=== PATIENT | male | born 1980 | race Caucasian/White ===

== ENCOUNTER 2017-03-05 20:17 | Observation (INO) | payer BC, OTHER ==
[2017-03-05] MEDS ORDERED: Ketorolac 30 MG/ML SDV IVPUSH ONE (20:21)
[2017-03-05] MEDS ORDERED: Alum Hydrox/Mag Hydrox/Simeth 15 ML, Metoclopramide 5 MG, Lidocaine 2% 5 ML PO ONE ×3 (20:21)
[2017-03-05] MEDS ORDERED: Famotidine 20 MG/2 ML SDV IVPUSH ONE (20:21)
[2017-03-05] MEDS ORDERED: Aspirin 81 MG Tab.Chew PO ONE (20:21)
[2017-03-05] MEDS ORDERED: Nitroglycerin 0.4 MG Tab.SL SL PRN (20:26)
[2017-03-05] MEDS ORDERED: Nitroglycerin 2% Oint 1 GM UD Packet TOP ONE (20:26)
--- NOTE | 2017-03-05 20:30 | EDM.PDOC ---
ED HISTORY OF PRESENT ILLNESS - General Chief Complaint: Chest Pain Stated Complaint: CHEST PAIN /SHORT OF BREATH Time Seen by Provider: 03/05/17 20:26 Source of Information: Reports: Patient History Limitations: Reports: No limitations - History of Present Illness INITIAL COMMENTS - FREE TEXT/NARRATIVE: History of present illness: [36-year-old male comes in complaining of stabbing chest pain approximately 2 hours ago. He is a obese male with a history of an RCA stent 2 years ago this month. Patient does indicate he has had anginal type pain off and on over the last 2 years without cardiac implications and so that is why he waited feeling that this would be like the other times and be self limiting and of no consequence when the pain would not stop he chose to come in an be evaluated.] Review of systems: As per history of present illness and below otherwise all systems reviewed and negative. Past medical history: As per history of present illness and as reviewed below otherwise noncontributory. Surgical history: As per history of present illness and as reviewed below otherwise noncontributory. Social history: No reported history of drug or alcohol abuse. Family history: As per history of present illness and as reviewed below otherwise noncontributory. Physical exam: HEENT: Atraumatic, normocephalic, pupils reactive, negative for conjunctival pallor or scleral icterus, mucous membranes moist, throat clear, neck supple, nontender, trachea midline. Lungs: Clear to auscultation, breath sounds equal bilaterally, chest nontender. Heart: S1S2, regular, negative for clicks, rubs, or JVD. Abdomen: Soft, nondistended, nontender. Negative for masses or hepatosplenomegaly. Negative for costovertebral tenderness. Pelvis: Stable nontender. Genitourinary: Deferred. Rectal: Deferred. Extremities: Atraumatic, negative for cords or calf pain. Neurovascular unremarkable. Neuro: Awake, alert, oriented. Cranial nerves II through XII unremarkable. Cerebellum unremarkable. Motor and sensory unremarkable throughout. Exam nonfocal. Initial troponin is negative Chest pain is 0/10 Diagnostics: [ cardiac work up] Therapeutics: IV lock, 1 inch of nitro paste and nitroglycerin sublingual when necessary ] Impression: [Chest pain] Plan: Admit to observation] Definitive disposition and diagnosis as appropriate pending reevaluation and review of above. - Related Data Allergies/ADRs: Allergies Allergy/AdvReac Type Severity Reaction Status Date / Time No Known Allergies Allergy Verified 03/05/17 20:26 Home Meds: Home Meds Escitalopram [Lexapro] 20 mg PO DAILY 07/06/14 [History] Esomeprazole [NexIUM] 20 mg PO DAILY 07/06/14 [History] Ranitidine HCl [Ranitidine] 150 mg PO ASDIRECTED PRN 07/06/14 [History] Budesonide/Formoterol [Symbicort 160-4.5 Mcg Inhaler] 2 puff INH DAILY 08/07/14 [History] Cholecalciferol (Vitamin D3) [Vitamin D3] 3 tab PO DAILY 08/07/14 [History] Albuterol [Ventolin HFA] 2 puff INH DAILY PRN 03/05/17 [History] Aspirin [Adult Low Dose Aspirin EC] 81 mg PO DAILY 03/05/17 [History] Bisoprolol [Zebeta] 5 mg PO DAILY 03/05/17 [History] Enalapril [Vasotec] 2.5 mg PO BID 03/05/17 [History] Nitroglycerin [Nitrostat] 0.4 mg SL Q5M PRN 03/05/17 [History] atorvaSTATin [Lipitor] 80 mg PO DAILY 03/05/17 [History] Social & Family History - Tobacco Use Smoking Status *Q: Current Every Day Smoker Years of Tobacco use: 12 Second Hand Smoke Exposure: No - Alcohol Use Days Per Week of Alcohol Use: 0 - Recreational Drug Use Recreational Drug Use: No ED ROS GENERAL - Review of Systems Review Of Systems: See Below (See history of present illness) ED EXAM, GENERAL - Physical Exam Exam: See Below (See history of present illness) Course - Vital Signs Last Recorded V/S: Last Vital Signs Temp 36.3 C 03/05/17 20:24 Pulse 91 03/05/17 20:24 Resp 20 03/05/17 20:24 BP 134/71 03/05/17 20:44 Pulse Ox 97 03/05/17 20:24 - Orders/Labs/Meds Orders: Active Orders 24 hr Category Date Time Status Cardiac Monitoring [RC] . DIRECTED Care 03/05/17 20:21 Active EKG Documentation Completion [RC] STAT Care 03/05/17 20:21 Active Chest 2V [CR] Stat Exams 03/05/17 20:21 Taken UA W/MICROSCOPIC [URIN] Stat Lab 03/05/17 20:21 Uncollected Saline Lock Insert [OM.PC] Stat Oth 03/05/17 20:21 Ordered Labs: Laboratory Tests 03/05/17 03/05/17 03/05/17 Range/Units 20:33 20:33 20:33 WBC 10.15 (4.0-11.0) K/uL RBC 4.89 (4.50-5.90) M/uL Hgb 15.5 (13.0-17.0) g/dL Hct 45.8 (38.0-50.0) % MCV 93.7 (80.0-98.0) fL MCH 31.7 (27.0-32.0) pg MCHC 33.8 (31.0-37.0) g/dL RDW Std Deviation 46.2 (28.0-62.0) fl RDW Coeff of Jessica 14 (11.0-15.0) % Plt Count 211 (150-400) K/uL MPV 11.10 (7.40-12.00) fL Neut % (Auto) 56.4 (48.0-80.0) % Lymph % (Auto) 31.1 (16.0-40.0) % Newton % (Auto) 7.3 (0.0-15.0) % Eos % (Auto) 5.0 (0.0-7.0) % Baso % (Auto) 0.2 (0.0-1.5) % Neut # (Auto) 5.7 (1.4-5.7) K/uL Lymph # (Auto) 3.2 H (0.6-2.4) K/uL Newton # (Auto) 0.7 (0.0-0.8) K/uL Eos # (Auto) 0.5 (0.0-0.7) K/uL Baso # (Auto) 0.0 (0.0-0.1) K/uL Nucleated RBC % 0.0 /100WBC Nucleated RBCs # 0 K/uL INR 1.05 (0.86-1.11) Sodium 140 (136-146) mmol/L Potassium 4.0 (3.5-5.1) mmol/L Chloride 109 (98-110) mmol/L Carbon Dioxide 24 (21-31) mmol/L BUN 10 (6.0-23.0) mg/dL Creatinine 1.0 (0.6-1.5) mg/dL Est Cr Clr Drug Dosing 109.93 mL/min Estimated GFR (MDRD) > 60.0 ml/min Glucose 156 H (60-110) mg/dL Calcium 8.8 (8.8-10.8) mg/dL Total Bilirubin 0.4 (0.1-1.5) mg/dL AST 28 (5-40) IU/L ALT 51 (8-54) IU/L Alkaline Phosphatase 120 (40-150) Troponin I (0.0-0.29) NG/ML Total Protein 6.8 (6.0-8.0) g/dL Albumin 4.1 (3.5-5.0) g/dL Globulin 2.7 (2.0-3.5) g/dL Albumin/Globulin Ratio 1.5 (1.3-2.8) Amylase 29 (10-90) U/L Lipase 22 (7-80) U/L 03/05/17 Range/Units 20:33 WBC (4.0-11.0) K/uL RBC (4.50-5.90) M/uL Hgb (13.0-17.0) g/dL Hct (38.0-50.0) % MCV (80.0-98.0) fL MCH (27.0-32.0) pg MCHC (31.0-37.0) g/dL RDW Std Deviation (28.0-62.0) fl RDW Coeff of Jessica (11.0-15.0) % Plt Count (150-400) K/uL MPV (7.40-12.00) fL Neut % (Auto) (48.0-80.0) % Lymph % (Auto) (16.0-40.0) % Newton % (Auto) (0.0-15.0) % Eos % (Auto) (0.0-7.0) % Baso % (Auto) (0.0-1.5) % Neut # (Auto) (1.4-5.7) K/uL Lymph # (Auto) (0.6-2.4) K/uL Newton # (Auto) (0.0-0.8) K/uL Eos # (Auto) (0.0-0.7) K/uL Baso # (Auto) (0.0-0.1) K/uL Nucleated RBC % /100WBC Nucleated RBCs # K/uL INR (0.86-1.11) Sodium (136-146) mmol/L Potassium (3.5-5.1) mmol/L Chloride (98-110) mmol/L Carbon Dioxide (21-31) mmol/L BUN (6.0-23.0) mg/dL Creatinine (0.6-1.5) mg/dL Est Cr Clr Drug Dosing mL/min Estimated GFR (MDRD) ml/min Glucose (60-110) mg/dL Calcium (8.8-10.8) mg/dL Total Bilirubin (0.1-1.5) mg/dL AST (5-40) IU/L ALT (8-54) IU/L Alkaline Phosphatase (40-150) Troponin I < 0.10 (0.0-0.29) NG/ML Total Protein (6.0-8.0) g/dL Albumin (3.5-5.0) g/dL Globulin (2.0-3.5) g/dL Albumin/Globulin Ratio (1.3-2.8) Amylase (10-90) U/L Lipase (7-80) U/L Meds: Medications Discontinued Medications Generic Name Dose Route Start Last Admin Trade Name Freq PRN Reason Stop Dose Admin Aspirin 324 mg 03/05/17 20:21 03/05/17 20:36 Aspirin PO 03/05/17 20:22 324 mg ONETIME ONE Administration Al Hydroxide/Mg Hydroxide 15 0 ml 03/05/17 20:21 03/05/17 20:37 ml/ Metoclopramide HCl 5 mg/ PO 03/05/17 20:22 15 each Lidocaine HCl 5 ml ONETIME ONE Administration Famotidine 20 mg 03/05/17 20:21 03/05/17 20:41 Pepcid IVPUSH 03/05/17 20:22 20 mg ONETIME ONE Administration Ketorolac Tromethamine 30 mg 03/05/17 20:21 03/05/17 20:38 Toradol IVPUSH 03/05/17 20:22 30 mg ONETIME ONE Administration Nitroglycerin 1 gm 03/05/17 20:26 03/05/17 20:36 Nitro-Bid 2% TOP 03/05/17 20:27 1 gm ONETIME ONE Administration Nitroglycerin 0.4 mg 03/05/17 20:26 03/05/17 20:44 Nitrostat SL 03/05/17 20:37 0.4 mg Q5M PRN Administration Chest Pain Departure - Departure Time of Disposition: 21:36 Disposition: Admitted As Inpatient 64 Clinical Impression: Chest pain Forms: ED Department Discharge - My Orders Last 24 Hours: My Active Orders 03/05/17 20:21 Cardiac Monitoring [RC] . DIRECTED EKG Documentation Completion [RC] STAT Chest 2V [CR] Stat UA W/MICROSCOPIC [URIN] Stat Saline Lock Insert [OM.PC] Stat - Assessment/Plan Last 24 Hours: My Active Orders 03/05/17 20:21 Cardiac Monitoring [RC] . DIRECTED EKG Documentation Completion [RC] STAT Chest 2V [CR] Stat UA W/MICROSCOPIC [URIN] Stat Saline Lock Insert [OM.PC] Stat
[2017-03-05 21:13] LABS: CHLORIDE,CL 109 mmol/L (98-110); SODIUM,NA 140 mmol/L (136-146)
[2017-03-05] MEDS ORDERED: Albuterol 8 GM Inhaler INH PRN (23:25)
[2017-03-05] MEDS ORDERED: Famotidine 20 MG Tab PO PRN (23:25)
[2017-03-05] MEDS ORDERED: Aspirin 81 MG Tab.EC PO SCH (23:30)
[2017-03-05] MEDS ORDERED: atorvaSTATin 40 MG Tab PO SCH (23:30)
[2017-03-06] MEDS: Enalapril 5 MG Tab PO SCH ×2 (00:24→08:49)
[2017-03-06] MEDS ORDERED: Pantoprazole 40 MG Tab.CR PO ONE (01:00)
[2017-03-06] MEDS ORDERED: Enoxaparin 40 MG/0.4 ML Syringe SUBCUT ONE (01:00)
[2017-03-06] MEDS ORDERED: Escitalopram 10 MG Tab PO ONE (01:00)
[2017-03-06] MEDS ORDERED: Cholecalciferol (Vitamin D3) 1,000 Unit Tab PO ONE (01:00)
[2017-03-06] MEDS ORDERED: Ketorolac 30 MG/ML SDV IVPUSH PRN (03:12)
[2017-03-06] MEDS ORDERED: Enoxaparin 40 MG/0.4 ML Syringe SUBCUT SCH (09:00)
[2017-03-06 11:28] VITALS: BP 125/77
--- NOTE | 2017-03-06 13:22 | CR ---
EXAM DATE: 03/05/17 PATIENT'S AGE: 36 Patient: HELLEN JOSEPH Facility: [place], [place] Site . Site : 1980 Study: XRay Chest [id number]/30/2017 9:04:20 PM Ordering Physician: Doctor Acevedo Final Report: Indication: Chest pain. Technique: Two views. Impression: Some limitation from body habitus. Heart size is upper normal. No mediastinal widening. Peripheral pulmonary vascularity is normal. No focal airspace opacity , pneumothorax or effusion. Dictated by Alvarado Dozier MD @ Mar 05 2017 9:08PM (Electronic Signature) Report Signed by Proxy. BLAISE
[2017-03-06] MEDS ORDERED: Cholecalciferol (Vitamin D3) 1,000 Unit Tab PO SCH (21:00)
[2017-03-06] MEDS ORDERED: Pantoprazole 40 MG Tab.CR PO SCH (21:00)
[2017-03-06] MEDS ORDERED: Escitalopram 10 MG Tab PO SCH (23:26)
--- NOTE | 2017-03-09 14:34 | PCM.HP ---
<Dorian Dominique - Last Filed: 03/09/17 14:26> H&P History of Present Illness - General Date of Service: 03/06/17 Admit Problem/Dx: chest pain Source of Information: Patient History Limitations: Reports: No limitations - History of Present Illness Initial Comments - Free Text/Narative: 36-year-old male admitted with stabbing chest pain over the past 2 hours. Patient's does have a cardiac history with right coronary artery stenting done 2 years ago. Patient states that over the past years he has had off-and-on anginal pain. The pain today came at rest and without exertion. It has persisted so the patient presented to the ER. Typically the pain will go away on its own. He denies any shortness of breath, wheezing, cough, nausea, vomiting , abdominal pain diaphoresis, radiation with the onset of chest pain. He denies any orthopnea or peripheral edema. Patient does smoke. ER course: Initial troponin was negative. Nitro paste was applied to the patient. He did receive a one-time dose of aspirin and he also received Pepcid, Toradol and a GI cocktail. When the patient got to [facility] floor he did not have any complaints of chest pain. Chest x-ray was unremarkable. Vital signs were stable and within normal limits. CBC, CMP were unremarkable. Chest Pain Score (Numeric/FACES): 0 - Related Data Allergies/Adverse Reactions: Allergies Allergy/AdvReac Type Severity Reaction Status Date / Time No Known Allergies Allergy Verified 03/05/17 20:26 Home Medications: Home Meds Escitalopram [Lexapro] 20 mg PO BEDTIME 07/06/14 [History] Esomeprazole [NexIUM] 20 mg PO BEDTIME 07/06/14 [History] Ranitidine HCl [Ranitidine] 150 mg PO ASDIRECTED PRN 07/06/14 [History] Budesonide/Formoterol [Symbicort 160-4.5 MCG] 2 puff INH ASDIRECTED PRN [History] Cholecalciferol (Vitamin D3) [Vitamin D3] 3 tab PO BEDTIME 08/07/14 [History] Albuterol [Ventolin HFA] 2 puff INH DAILY PRN 03/05/17 [History] Aspirin [Adult Low Dose Aspirin EC] 81 mg PO BEDTIME 03/05/17 [History] Bisoprolol [Zebeta] 2.5 mg PO BEDTIME 03/05/17 [History] Enalapril [Vasotec] 2.5 mg PO BID 03/05/17 [History] Nitroglycerin [Nitrostat] 0.4 mg SL Q5M PRN 03/05/17 [History] atorvaSTATin [Lipitor] 80 mg PO BEDTIME 03/05/17 [History] Past Medical History Cardiovascular History: Reports: CAD, High cholesterol, Hypertension, SD, Stents Respiratory History: Reports: Asthma Gastrointestinal History: Reports: GERD Genitourinary History: Reports: Other (see below) Other Genitourinary History: Kidney stone Psychiatric History: Reports: Depression - Infectious Disease History Infectious Disease History: Reports: Chicken pox - Past Surgical History Cardiovascular Surgical History: Reports: Coronary artery stent Respiratory Surgical History: Reports: None GI Surgical History: Reports: None Other Male Surgeries/Procedures: kidney stone removal Musculoskeletal Surgical History: Reports: Carpal tunnel Social & Family History - Family History Family Medical History: Noncontributory - Tobacco Use Smoking Status *Q: Current Every Day Smoker Years of Tobacco use: 27 Packs/Tins Daily: 0.5 Second Hand Smoke Exposure: Yes - Caffeine Use Caffeine Use: Reports: Coffee, Soda, Tea - Alcohol Use Days Per Week of Alcohol Use: 0 - Recreational Drug Use Recreational Drug Use: Yes Recreational Drug Type: Reports: Marijuana/Hashish H&P Review of Systems - Review of Systems: Review Of Systems: See Below General: Reports: no symptoms HEENT: Reports: no symptoms Pulmonary: Reports: No Symptoms Cardiovascular: Reports: chest pain Gastrointestinal: Reports: No symptoms Genitourinary: Reports: no symptoms Musculoskeletal: Reports: no symptoms Skin: Reports: no symptoms Psychiatric: Reports: no symptoms Neurological: Reports: No Symptoms Hematologic/Lymphatic: Reports: no symptoms Immunologic: Reports: no symptoms Exam - Exam Exam: See Below - Vital Signs Vital Signs: Last Vital Signs Temp 97.2 F 03/06/17 11:28 Pulse 66 03/06/17 11:28 Resp 22 H 03/06/17 11:28 BP 125/77 03/06/17 11:28 Pulse Ox 97 03/06/17 11:28 Weight: 154.9 kg - Exam Quality Assessment: DVT prophylaxis (scd's) General: alert, oriented, cooperative Neck: supple, trachea midline, 2 Lungs: Clear to auscultation, Normal respiratory effort Cardiovascular: regular rate, regular rhythm Abdomen: normal bowel sounds, soft Back Exam: normal inspection, full range of motion, NT Extremities: 3, normal inspection, 10 Peripheral Pulses: 2+: radial (L), radial (R) Skin: warm, dry, intact Neuro Extensive - Mental Status: alert, oriented x3, normal mood/affect, normal cognition Psychiatric: alert, normal affect, normal mood - Patient Data Result Diagrams: 03/05/17 20:33 03/05/17 20:33 *Q Meaningful Use (ADM) - VTE *Q VTE Criteria *Q: - Stroke *Q Stroke Criteria *Q: - AMI *Q AMI Criteria *Q: - Problem List (1) Chest pain SNOMED Code(s): 56866070 ICD Code: R07.9 - CHEST PAIN, UNSPECIFIED Status: Acute Problem List Initiated/Reviewed/Updated: Yes Assessment/Plan Comment:: 36-year-old male admitted with chest pain. #1. Chest pain: -Serial troponins have been ordered. Initial troponin was negative. -CBC, CMP, lipase all ordered in the ER are unremarkable. -Chest x-ray is unremarkable. EKG unremarkable. No evidence of STEMI. -Lipid panel ordered and pending. -Patient admitted for observation. Will be placed on telemetry. Admission diagnoses: #1. Chest pain #2. Tobacco use Discharge diagnoses: #1. Chest pain, resolved #2. Tobacco use 36-year-old male admitted with chest pain. Full cardiac workup including chest x -ray and serial troponins were negative. Patient was placed on telemetry with no acute cardiac events being appreciated. EKG was unremarkable. CBC, CMP, lipid panel and lipase were all negative. Vital signs remained within normal limits during admission. Patient had no chest pain after being admitted to the hospital. At the time of discharge, the patient was ambulating without assistance, tolerating oral intake, voiding appropriately and denying chest pain , palpitations, shortness of breath, wheezing, cough, nausea, vomiting, constipation, diarrhea. Discharge plan: #1. 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 Patient is visiting from [place]. #2. All home medications were resumed. #3. Encouraged smoking cessation. <Cadence,Adelfo O - Last Filed: 03/09/17 15:19> Exam - Vital Signs Vital Signs: Last Vital Signs Temp 36.2 C 03/06/17 11:28 Pulse 66 03/06/17 11:28 Resp 22 H 03/06/17 11:28 BP 125/77 03/06/17 11:28 Pulse Ox 97 03/06/17 11:28 - Patient Data Result Diagrams: 03/05/17 20:33 03/05/17 20:33 *Q Meaningful Use (ADM) - VTE *Q VTE Criteria *Q: - Stroke *Q Stroke Criteria *Q: - AMI *Q AMI Criteria *Q: Assessment/Plan Comment:: I was present with the resident during the history and exam. I discussed the case with the resident and agree with the findings and plan ass documented in the resident's note.
== END 2017-03-06 11:55 | disposition home or self-care (01) ==
LOC: MW.ED 20:17 → MW.MS 21:49
PROVIDERS: ADMIT Internal Medicine; ATTEND Internal Medicine
DX: R07.9 Chest pain, unspecified (principal); I25.10 Atherosclerotic heart disease of native coronary artery without angina pectoris; I10 Essential (primary) hypertension; E78.00 Pure hypercholesterolemia, unspecified; J45.909 Unspecified asthma, uncomplicated; K21.9 Gastro-esophageal reflux disease without esophagitis; F32.9 Major depressive disorder, single episode, unspecified; Z95.5 Presence of coronary angioplasty implant and graft; Z79.82 Long term (current) use of aspirin; Z98.890 Other specified postprocedural states; Z79.899 Other long term (current) drug therapy; F17.210 Nicotine dependence, cigarettes, uncomplicated
CPT/HCPCS: 36415; 71020; 80053; 80061; 82150; 83690; 84484; 85025; 85610; 93005; 96372; 96374; 96375; 96376; 99285; A9270; G0378; J1650; J1885

== ENCOUNTER 2017-03-13 11:35 | Emergency (ER) | payer BC ==
[2017-03-13] MEDS ORDERED: Morphine 2 MG/ML Syringe IVPUSH ONE (11:58)
[2017-03-13] MEDS ORDERED: Sodium Chloride 0.9% 2.5 ML Syringe FLUSH PRN (11:58)
[2017-03-13] MEDS ORDERED: Sodium Chloride 0.9% 10 ML Syringe FLUSH PRN (11:58)
[2017-03-13] MEDS ORDERED: Ondansetron 4 MG/2 ML SDV IVPUSH ONE (11:58)
[2017-03-13] MEDS ORDERED: Sodium Chloride 0.9% 1,000 ML IV ONE (11:58)
[2017-03-13] MEDS ORDERED: Famotidine 20 MG/2 ML SDV IVPUSH ONE (12:04)
--- NOTE | 2017-03-13 12:04 | EDM.PDOC ---
ED HPI GENERAL MEDICAL PROBLEM - General Chief Complaint: Abdominal Pain Stated Complaint: SEVERE ABD PAIN/SHORTNESS OF BREATH Time Seen by Provider: 03/13/17 11:48 - History of Present Illness INITIAL COMMENTS - FREE TEXT/NARRATIVE: HISTORY AND PHYSICAL: History of present illness: The patient is a 36-year-old male with no significant GI history but who has a significant cardiac history including angioplasty and stent 2 years ago in [place] who was recently admitted here for chest pain March 05 to March 06. The chart has been reviewed and he ruled out with enzymes and EKGs. The patient has since followed up with his time stamp assembler at home in [place] on March 09 and he has an event monitor currently in place and has a stress test scheduled for March 30. The patient states that he lives in [facility] and came here today because he was having upper abdominal pain associated with nausea vomiting and diarrhea that started at about 3 AM is morning. Patient denies any new foods or new medications and says that he had a good day yesterday and woke up with the upper abdominal pain which is crampy and sharp in character associated with nausea and vomiting which has been intractable and diarrhea which has been watery x10 times. The stools and vomit are not black or bloody and he has no history of gallbladder issues pancreas problems IBS colon issues or peptic ulcer disease. The patient did not try any [id number] medications for the symptoms that they should come here because his records were here from the last admission. The patient denies any chest pain but says he does get a little short of breath when the abdominal pain intensifies. He has no flank pain or urinary issues. He states that this discomfort and the symptoms are not his typical anginal equivalent and he is not concerned about his heart today. The patient states that he has felt chills but has no documented fever. He has not had any recent exotic travel Review of systems: As per history of present illness and below otherwise all systems reviewed and negative. Past medical history: As per history of present illness and as reviewed below otherwise noncontributory. Surgical history: As per history of present illness and as reviewed below otherwise noncontributory. Social history: No reported history of drug or alcohol abuse. Family history: As per history of present illness and as reviewed below otherwise noncontributory. Physical exam: General: Well-developed well-nourished man overweight nontoxic and moves easily in the ED. Vital signs have been reviewed by me. HEENT: Atraumatic, normocephalic, pupils reactive, negative for conjunctival pallor or scleral icterus, mucous membranes tacky, throat clear, neck supple, nontender, trachea midline. Lungs: Clear to auscultation, breath sounds equal bilaterally, chest nontender. Heart: S1S2, regular, negative for clicks, rubs, or JVD. Abdomen: Soft, nondistended, there is mild tenderness on deep palpation of the upper abdomen more in the epigastrium and the right side. Bowel sounds are slightly hyperactive there is no rebound or guarding or tympany on percussion Negative for masses or hepatosplenomegaly. Negative for costovertebral tenderness. Pelvis: Stable nontender. Genitourinary: Deferred. Rectal: Deferred. Extremities: Atraumatic, negative for cords or calf pain. Neurovascular unremarkable. Neuro: Awake, alert, oriented. Cranial nerves II through XII unremarkable. Cerebellum unremarkable. Motor and sensory unremarkable throughout. Exam nonfocal. Diagnostics: EKG CBC CMP amylase lipase UA I will send stool for studies if the patient produces I will review his testing results reevaluate the patient and decide if CAT scan is indicated Therapeutics: IV fluids Zofran morphine Pepcid 1452: Testing results were discussed with the patient and he says that the pain is improved and is still dull in the right upper quadrant but is no longer nauseated and he has not had any diarrhea here. I also discussed these testing results with our surgeon agricultural extension educator Dr. Pena. He is aware of my concerns with a WBC count but in light of normal liver function tests and no left shift and a WBC count and a CAT scan that only indicates gallstones but no evidence of gallbladder wall thickening pericholecystic fluid or cholecystitis he would manage this as an outpatient with oral Levaquin and close followup. He did tell me that because of the patient's BMI we would not be able to do a laparoscopic cholecystectomy here and that he would have to have this done someplace else. I discussed with the patient reasons to return to the ER especially persistent pain nausea vomiting and fevers and also discussed with him that he eats a call and inform his time stamp assembler of what is going on here and get followup back home when he is able. I told him that if anything changes or progresses that he should return here. We also talked about a low-fat diet Impression: Upper abdominal pain with vomiting and diarrhea improved, cholelithiasis, leukocytosis Definitive disposition and diagnosis as appropriate pending reevaluation and review of above. abdomen Pain Score (Numeric/FACES): 5 - Related Data Allergies Allergy/AdvReac Type Severity Reaction Status Date / Time No Known Allergies Allergy Verified 03/13/17 12:04 Home Meds: Home Meds Escitalopram [Lexapro] 20 mg PO BEDTIME 07/06/14 [History] Esomeprazole [NexIUM] 20 mg PO BEDTIME 07/06/14 [History] Ranitidine HCl [Ranitidine] 150 mg PO ASDIRECTED PRN 07/06/14 [History] Budesonide/Formoterol [Symbicort 160-4.5 MCG] 2 puff INH ASDIRECTED PRN [History] Cholecalciferol (Vitamin D3) [Vitamin D3] 3 tab PO BEDTIME 08/07/14 [History] Albuterol [Ventolin HFA] 2 puff INH ASDIRECTED PRN 03/05/17 [History] Aspirin [Adult Low Dose Aspirin EC] 81 mg PO DAILY 03/05/17 [History] Bisoprolol [Zebeta] 2.5 mg PO BEDTIME 03/05/17 [History] Enalapril [Vasotec] 2.5 mg PO BID 03/05/17 [History] Nitroglycerin [Nitrostat] 0.4 mg SL Q5M PRN 03/05/17 [History] atorvaSTATin [Lipitor] 80 mg PO BEDTIME 03/05/17 [History] Past Medical History Cardiovascular History: Reports: CAD, High cholesterol, Hypertension, MD, Stents Respiratory History: Reports: Asthma Gastrointestinal History: Reports: GERD Genitourinary History: Reports: Other (see below) Other Genitourinary History: Kidney stone Psychiatric History: Reports: Depression - Infectious Disease History Infectious Disease History: Reports: Chicken pox - Past Surgical History Cardiovascular Surgical History: Reports: Coronary artery stent Respiratory Surgical History: Reports: None GI Surgical History: Reports: None Other Male Surgeries/Procedures: kidney stone removal Musculoskeletal Surgical History: Reports: Carpal tunnel Social & Family History - Family History Family Medical History: Noncontributory - Tobacco Use Smoking Status *Q: Current Every Day Smoker Years of Tobacco use: 27 Packs/Tins Daily: 0.5 Second Hand Smoke Exposure: Yes - Caffeine Use Caffeine Use: Reports: Coffee, Soda, Tea - Alcohol Use Days Per Week of Alcohol Use: 0 - Recreational Drug Use Recreational Drug Use: Yes Recreational Drug Type: Reports: Marijuana/Hashish ED ROS GENERAL - Review of Systems Review Of Systems: ROS reveals no pertinent complaints other than HPI. ED EXAM, GENERAL - Physical Exam Exam: See Below (see dictation) Course - Vital Signs Last Recorded V/S: Last Vital Signs Temp 36.2 C 03/13/17 11:40 Pulse 70 03/13/17 14:32 Resp 21 H 03/13/17 14:32 BP 116/62 03/13/17 14:32 Pulse Ox 95 03/13/17 14:32 - Orders/Labs/Meds Orders: Active Orders 24 hr Category Date Time Status Communication Order [RC] STAT Care 03/13/17 11:59 Active EKG Documentation Completion [RC] STAT Care 03/13/17 11:56 Active Sodium Chloride 0.9% [Saline Flush] Med 03/13/17 11:58 Active 10 ml FLUSH ASDIRECTED PRN Sodium Chloride 0.9% [Saline Flush] Med 03/13/17 11:58 Active 2.5 ml FLUSH ASDIRECTED PRN Saline Lock Insert [OM.PC] Stat Oth 03/13/17 11:56 Ordered Medication Orders Sodium Chloride (Saline Flush) 10 ml FLUSH ASDIRECTED PRN PRN Reason: Keep Vein Open Sodium Chloride (Saline Flush) 2.5 ml FLUSH ASDIRECTED PRN PRN Reason: Keep Vein Open Labs: Laboratory Tests 03/13/17 03/13/17 03/13/17 Range/Units 12:10 12:10 12:35 WBC 17.33 H (4.0-11.0) K/uL RBC 5.74 (4.50-5.90) M/uL Hgb 18.6 H (13.0-17.0) g/dL Hct 52.7 H (38.0-50.0) % MCV 91.8 (80.0-98.0) fL MCH 32.4 H (27.0-32.0) pg MCHC 35.3 (31.0-37.0) g/dL RDW Std Deviation 45.6 (28.0-62.0) fl RDW Coeff of Jessica 14 (11.0-15.0) % Plt Count 240 (150-400) K/uL MPV 10.90 (7.40-12.00) fL Neut % (Auto) 85.7 H (48.0-80.0) % Lymph % (Auto) 8.3 L (16.0-40.0) % Jewell % (Auto) 4.9 (0.0-15.0) % Eos % (Auto) 1.0 (0.0-7.0) % Baso % (Auto) 0.1 (0.0-1.5) % Neut # (Auto) 14.9 H (1.4-5.7) K/uL Lymph # (Auto) 1.4 (0.6-2.4) K/uL Jewell # (Auto) 0.9 H (0.0-0.8) K/uL Eos # (Auto) 0.2 (0.0-0.7) K/uL Baso # (Auto) 0.0 (0.0-0.1) K/uL Nucleated RBC % 0.0 /100WBC Nucleated RBCs # 0 K/uL Sodium 137 (136-146) mmol/L Potassium 5.0 (3.5-5.1) mmol/L Chloride 109 (98-110) mmol/L Carbon Dioxide 18 L (21-31) mmol/L BUN 18 (6.0-23.0) mg/dL Creatinine 1.0 (0.6-1.5) mg/dL Est Cr Clr Drug Dosing 109.93 mL/min Estimated GFR (MDRD) > 60.0 ml/min Glucose 155 H (60-110) mg/dL Calcium 9.4 (8.8-10.8) mg/dL Total Bilirubin 0.9 (0.1-1.5) mg/dL AST 27 (5-40) IU/L ALT 50 (8-54) IU/L Alkaline Phosphatase 103 (40-150) Total Protein 7.5 (6.0-8.0) g/dL Albumin 4.4 (3.5-5.0) g/dL Globulin 3.1 (2.0-3.5) g/dL Albumin/Globulin Ratio 1.4 (1.3-2.8) Amylase 33 (10-90) U/L Lipase 11 (7-80) U/L Urine Color YELLOW Urine Appearance CLEAR Urine pH 5.5 (5.0-8.0) Ur Specific [place] >= 1.030 (1.001-1.035) Urine Protein NEGATIVE (NEGATIVE) mg/dL Urine Glucose (UA) NEGATIVE (NEGATIVE) mg/dL Urine Ketones NEGATIVE (NEGATIVE) mg/dL Urine Occult Blood TRACE-INTACT (NEGATIVE) Urine Nitrite NEGATIVE (NEGATIVE) Urine Bilirubin NEGATIVE (NEGATIVE) Urine Urobilinogen 0.2 (<2.0) EU/dL Ur Leukocyte Esterase NEGATIVE (NEGATIVE) Urine RBC 4-6 (0-2/HPF) Urine WBC 0-1 (0-5/HPF) Ur Epithelial Cells RARE (NONE-FEW) Urine Bacteria FEW (NEGATIVE) Urine Mucus LIGHT (NONE-MOD) Meds: Medications Generic Name Dose Route Start Last Admin Trade Name Freq PRN Reason Stop Dose Admin Sodium Chloride 10 ml 03/13/17 11:58 Saline Flush FLUSH ASDIRECTED PRN Keep Vein Open Sodium Chloride 2.5 ml 03/13/17 11:58 Saline Flush FLUSH ASDIRECTED PRN Keep Vein Open Discontinued Medications Generic Name Dose Route Start Last Admin Trade Name Freq PRN Reason Stop Dose Admin Diphenhydramine HCl 50 mg 03/13/17 14:48 Benadryl IVPUSH 03/13/17 14:49 ONETIME ONE Famotidine 20 mg 03/13/17 12:04 03/13/17 12:38 Pepcid IVPUSH 03/13/17 12:05 20 mg ONETIME ONE Administration Sodium Chloride 1,000 mls @ 999 mls/hr 03/13/17 11:58 03/13/17 12:33 Normal Saline IV 03/13/17 12:58 999 mls/hr STAT ONE Administration Iopamidol 100 ml 03/13/17 13:29 03/13/17 13:30 Isovue Multipack-370 (76%) IVPUSH 03/13/17 13:30 100 ml ONETIME STA Administration Morphine Sulfate 4 mg 03/13/17 11:58 03/13/17 12:35 Morphine IVPUSH 03/13/17 11:59 4 mg ONETIME ONE Administration Ondansetron HCl 4 mg 03/13/17 11:58 03/13/17 12:34 Zofran IVPUSH 03/13/17 11:59 4 mg ONETIME ONE Administration Departure - Departure Time of Disposition: 14:59 Disposition: Home, Self-Care 01 Condition: good Clinical Impression: Abdominal pain Qualifiers: Abdominal location: upper abdomen, unspecified Qualified Code(s): R10.10 - Upper abdominal pain, unspecified Diarrhea Qualifiers: Diarrhea type: unspecified type Qualified Code(s): R19.7 - Diarrhea, unspecified Vomiting Qualifiers: Vomiting type: unspecified Vomiting Intractability: non-intractable Cholelithiasis Qualifiers: Cholelithiasis location: gallbladder Cholecystitis presence: without cholecystitis Biliary obstruction: without biliary obstruction Qualified Code(s) : K80.20 - Calculus of gallbladder without cholecystitis without obstruction Leukocytosis Qualifiers: Leukocytosis type: unspecified Qualified Code(s): D72.829 - Elevated white blood cell count, unspecified Forms: ED Department Discharge Additional Instructions: The following information is given to patients seen in the emergency department who are being discharged to home. This information is to outline your options for follow-up care. We provide all patients seen in our emergency department with a follow-up referral. The need for follow-up, as well as the timing and circumstances, are variable depending upon the specifics of your emergency department visit. If you don't have a primary care physician on staff, we will provide you with a referral. We always advise you to contact your personal physician following an emergency department visit to inform them of the circumstance of the visit and for follow-up with them and/or the need for any referrals to a consulting specialist. The emergency department will also refer you to a specialist when appropriate. This referral assures that you have the opportunity for followup care with a specialist. All of these measure are taken in an effort to provide you with optimal care, which includes your followup. Under all circumstances we always encourage you to contact your private physician who remains a resource for coordinating your care. When calling for followup care, please make the office aware that this follow-up is from your recent emergency room visit. If for any reason you are refused follow-up, please contact the [facility] emergency department at and ask to speak to the emergency department charge nurse. [facility]- [facility] [address] [place] [id number] [address] [facility] Specialty Care-General Surgery Professional Building [address] [place] [id number] Please maintain a low-fat diet and push hydration as we discussed. Take all medications as needed and prescribed. Please call and followup with your doctor at home as we discussed and he may also followup with one of our clinics in the next few days. Please return to ER as needed and as discussed - My Orders Last 24 Hours: My Active Orders 03/13/17 11:56 EKG Documentation Completion [RC] STAT Saline Lock Insert [OM.PC] Stat 03/13/17 11:58 Sodium Chloride 0.9% [Saline Flush] 10 ml FLUSH ASDIRECTED PRN Sodium Chloride 0.9% [Saline Flush] 2.5 ml FLUSH ASDIRECTED PRN 03/13/17 11:59 Communication Order [RC] STAT - Assessment/Plan Last 24 Hours: My Active Orders 03/13/17 11:56 EKG Documentation Completion [RC] STAT Saline Lock Insert [OM.PC] Stat 03/13/17 11:58 Sodium Chloride 0.9% [Saline Flush] 10 ml FLUSH ASDIRECTED PRN Sodium Chloride 0.9% [Saline Flush] 2.5 ml FLUSH ASDIRECTED PRN 03/13/17 11:59 Communication Order [RC] STAT
[2017-03-13 12:44] LABS: CHLORIDE,CL 109 mmol/L (98-110); SODIUM,NA 137 mmol/L (136-146)
[2017-03-13] MEDS ORDERED: Iopamidol 755 MG/ML 500 ML Multipack Bottle IVPUSH STA (13:29)
--- NOTE | 2017-03-13 13:47 | CT ---
CT of the abdomen and pelvis with contrast. HISTORY: Pain TECHNIQUE: Axial CT images were obtained of the abdomen and pelvis following administration of 100 m L of Isovue-370 in the left arm without complication. Coronal and sagittal reconstructions obtained. FINDINGS: The lung bases are clear, no pleural effusion. The liver, spleen, and adrenal glands appear normal. The pancreas appears unremarkable. Cholelithias is without evidence of cholecystitis. There is a trace perihepatic fluid. No bulky retroperitoneal l ymphadenopathy or abdominal ascites. The kidneys enhance and function symmetrically without evidence of obstructive uropathy. Small nonob structing renal stones are noted bilaterally. The large and small bowel are normal in caliber without evidence of obstruction. The appendix appear s normal. There is a trace free pelvic fluid. The urinary bladder is normal. There is a small fat-co ntaining left inguinal hernia. No suspicious osseous abnormalities identified. IMPRESSION: 1. Small amount of abdominal ascites, however the etiology is uncertain 2. Cholelithiasis without evidence of cholecystitis. 3. Nephrolithiasis without evidence of obstructive uropathy.
[2017-03-13] MEDS ORDERED: diphenhydrAMINE 50 MG/ML SDV IVPUSH ONE (14:48)
[2017-03-13] MEDS ORDERED: Levofloxacin 500 MG Tab PO ONE (15:02)
[2017-03-13 15:19] VITALS: BP 137/88
== END 2017-03-13 15:15 | disposition home or self-care (01) ==
LOC: MW.ED 11:35
DX: K80.20 Calculus of gallbladder without cholecystitis without obstruction (principal); D72.829 Elevated white blood cell count, unspecified; R19.7 Diarrhea, unspecified; I25.10 Atherosclerotic heart disease of native coronary artery without angina pectoris; E78.00 Pure hypercholesterolemia, unspecified; I10 Essential (primary) hypertension; I25.2 Old myocardial infarction; J45.909 Unspecified asthma, uncomplicated; K21.9 Gastro-esophageal reflux disease without esophagitis; F32.9 Major depressive disorder, single episode, unspecified; F17.210 Nicotine dependence, cigarettes, uncomplicated; Z79.82 Long term (current) use of aspirin; Z79.899 Other long term (current) drug therapy
CPT/HCPCS: 36415; 74177; 80053; 81001; 82150; 83690; 85025; 93005; 96361; 96374; 96375; 99284; A9270; J1200; J2270; J2405; J7040; Q9967; 99285